=== PATIENT | female | born 1940 | race Caucasian/White ===

== ENCOUNTER 2016-12-27 14:34 | Outpatient (CLI) | payer MEDICARE, OTHER | END 2016-12-27 14:35 | disposition home or self-care (01) | DX: Z12.31 Encounter for screening mammogram for malignant neoplasm of breast (principal) ==

== ENCOUNTER 2018-01-27 10:13 | Outpatient (CLI) | payer MEDICARE, OTHER ==
--- NOTE | 2018-01-31 17:26 | Mammography Report ---
DIGITAL SCREENING MAMMOGRAM: 01/27/2018 CLINICAL INDICATION: A 77-year-old for screening. COMPARISON: 12/2016, 11/2015, 10/2014, 10/2013, 10/2012, 01/2011, 11/2009. TECHNIQUE: Routine CC and MLO projections were obtained of the breasts. FINDINGS: Scattered fibroglandular tissue is present within the breasts. There are no dominant masses, suspicious microcalcifications, or secondary signs of malignancy. In comparison to the previous studies, there are no significant changes. ASSESSMENT: NO MAMMOGRAPHIC EVIDENCE OF MALIGNANCY. NO SIGNIFICANT INTERVAL CHANGES. RECOMMENDATION: Screening mammography is recommended annually. BIRADS category 1 - negative. STANDARD QUALIFYING STATEMENTS: 1. This examination was reviewed with the aid of Computed-Aided Detection (CAD). 2. A negative or benign imaging report should not delay biopsy if clinically suspicious findings are present. Consider surgical consultation if warranted. More than 5% of cancers are not identified by imaging. 3. Dense breasts may obscure an underlying neoplasm. TD: 01/31/2018 15:09
== END 2018-01-27 10:14 | disposition home or self-care (01) ==
LOC: DI.N 10:13
PROVIDERS: ATTEND Family Medicine
DX: Z12.31 Encounter for screening mammogram for malignant neoplasm of breast (principal)
CPT/HCPCS: 77067

== ENCOUNTER 2018-03-27 08:00 | Outpatient (CLI) | payer MEDICARE, OTHER ==
[2018-03-27 12:54] LABS: BASOPHILS % (AUTO) 0.7 %; EOSINOPHILS # (AUTO) 0.1 10^3/uL (0.0-0.7); EOSINOPHILS % (AUTO) 1.9 %; HGB - HEMOGLOBIN 11.6 g/dL (12.0-16.0); LYMPHOCYTES # (AUTO) 1.7 10^3/uL (1.5-3.5); LYMPHOCYTES % (AUTO) 25.2 %; MEAN CORPUSCULAR HGB CONC 32.8 g/dL (32.0-36.0); MEAN CORPUSCULAR VOLUME 94.6 fL (81.0-99.0); MEAN PLATELET VOLUME 8.5 fL (7.9-10.8); MONOCYTES # (AUTO) 0.5 10^3/uL (0.0-1.0); MONOCYTES % (AUTO) 8.2 %; NEUTROPHILS # (AUTO) 4.2 10^3/uL (1.5-6.6); PLT - PLATELET COUNT 266 10^3/uL (130-450); RED BLOOD COUNT 3.74 10^6/uL (4.20-5.40); WHITE BLOOD COUNT 6.6 x10^3/uL (4.8-10.8)
[2018-03-27 12:59] LABS: ALBUMIN 3.2 g/dL (3.2-5.5); ALBUMIN/GLOBULIN RATIO 0.9 (1.0-2.2); ALKALINE PHOSPHATASE 45 IU/L (42-121); ALT ALANINE AMINOTRANSFERASE 19 IU/L (10-60); AST ASPARTATE AMINOTRANSFERASE 27 IU/L (10-42); BILIRUBIN,TOTAL 0.4 mg/dL (0.2-1.0); BUN - BLOOD UREA NITROGEN 29 mg/dL (6-20); CALCIUM 8.7 mg/dL (8.5-10.3); CARBON DIOXIDE - CO2 26 mmol/L (21-32); CHLORIDE 104 mmol/L (101-111); CHOL/HDL RATIO 3.2 (<4.4); CHOLESTEROL 154 mg/dL; CREATININE 1.3 mg/dL (0.4-1.0); GFR - MDRD 40 (>89); GLUCOSE 88 mg/dL (70-100); HDL CHOLESTEROL 48 mg/dL; LDL CHOLESTEROL,CALCULATED 87 mg/dL; LDL/HDL RATIO 1.8 (<4.4); SODIUM 136 mmol/L (135-145); TOTAL PROTEIN 6.7 g/dL (6.7-8.2); VLDL CHOLESTEROL 19 mg/dL
== END 2018-03-27 08:01 | disposition home or self-care (01) ==
LOC: LAB.WCP 08:00
PROVIDERS: ATTEND Family Medicine
DX: I12.9 Hypertensive chronic kidney disease with stage 1 through stage 4 chronic kidney disease, or unspecified chronic kidney disease (principal); N18.3 Chronic kidney disease, stage 3 (moderate)
CPT/HCPCS: 36415; 80053; 80061; 83721; 84443; 85025

== ENCOUNTER 2018-05-17 10:56 | Outpatient (CLI) | payer MEDICARE, OTHER ==
[2018-05-17 19:28] LABS: HGB - HEMOGLOBIN 11.4 g/dL (12.0-16.0); MEAN CORPUSCULAR HEMOGLOBIN 30.9 pg (27.0-31.0); MEAN CORPUSCULAR HGB CONC 32.9 g/dL (32.0-36.0); MEAN CORPUSCULAR VOLUME 94.2 fL (81.0-99.0); MEAN PLATELET VOLUME 8.9 fL (7.9-10.8); RED BLOOD COUNT 3.69 10^6/uL (4.20-5.40); RED CELL DISTRIBUTION WIDTH 13.4 % (12.0-15.0); WHITE BLOOD COUNT 5.5 x10^3/uL (4.8-10.8)
== END 2018-05-17 10:57 | disposition home or self-care (01) ==
LOC: LAB.WCP 10:56
PROVIDERS: ATTEND Family Medicine
DX: R06.09 Other forms of dyspnea (principal); E78.5 Hyperlipidemia, unspecified
CPT/HCPCS: 36415; 80048; 80061; 83721; 83880; 85027

== ENCOUNTER 2018-05-18 11:30 | Outpatient (CLI) | payer MEDICARE, OTHER ==
[2018-05-18 20:03] LABS: BUN - BLOOD UREA NITROGEN 22 mg/dL (6-20); CALCIUM 9.2 mg/dL (8.5-10.3); CARBON DIOXIDE - CO2 27 mmol/L (21-32); CHLORIDE 101 mmol/L (101-111); CHOL/HDL RATIO 3.8 (<4.4); CHOLESTEROL 187 mg/dL; CREATININE 1.1 mg/dL (0.4-1.0); GFR - MDRD 48 (>89); GLUCOSE 85 mg/dL (70-100); HDL CHOLESTEROL 49 mg/dL; LDL CHOLESTEROL,CALCULATED 117 mg/dL; LDL/HDL RATIO 2.4 (<4.4); SODIUM 135 mmol/L (135-145); VLDL CHOLESTEROL 21 mg/dL
== END 2018-05-18 11:31 ==
LOC: LAB.WCP 11:30
PROVIDERS: ATTEND Family Medicine
DX: E78.5 Hyperlipidemia, unspecified (principal); R06.09 Other forms of dyspnea
CPT/HCPCS: 36415; 80048; 80061; 83721

== ENCOUNTER 2018-05-24 08:24 | Outpatient (CLI) | payer MEDICARE, OTHER | END 2018-05-24 08:25 | disposition home or self-care (01) | LOC: DI 08:24 | PROVIDERS: ATTEND Family Medicine | DX: R06.00 Dyspnea, unspecified (principal); R01.1 Cardiac murmur, unspecified | CPT/HCPCS: 93306 ==

== ENCOUNTER 2019-02-28 14:28 | Outpatient (CLI) | payer MEDICARE, OTHER ==
[2019-02-28 18:54] LABS: CALCIUM 9.2 mg/dL (8.5-10.3); CREATININE 1.5 mg/dL (0.4-1.0)
== END 2019-02-28 14:29 | disposition home or self-care (01) ==
LOC: LAB.WCP 14:28
PROVIDERS: ATTEND Family Medicine
DX: I12.9 Hypertensive chronic kidney disease with stage 1 through stage 4 chronic kidney disease, or unspecified chronic kidney disease (principal); N18.3 Chronic kidney disease, stage 3 (moderate)
CPT/HCPCS: 36415; 80048

== ENCOUNTER 2019-03-09 14:22 | Outpatient (CLI) | payer MEDICARE, OTHER ==
--- NOTE | 2019-03-12 10:50 | Mammography Report ---
Reason: SCREENING MAMMOGRAM FOR BREAST CANCER Procedure Date: 03/09/2019 Accession Number: [id number] / [id number] Procedure: MGN - Screening Mammo Dig Bilat CPT Code: FULL RESULT: EXAM: Screening Mammo Dig Bilat DATE: 03/09/2019 2:46 PM CLINICAL HISTORY: Routine screening TECHNIQUE: (B) - Bilateral CC and MLO views were obtained. COMPARISON: 01/27/2018, 12/27/2016, 12/04/2015, 10/23/2014 PARENCHYMAL PATTERN: (A) - The breasts demonstrate scattered fibroglandular densities bilaterally. FINDINGS: No significant interval change. There are no suspicious masses, calcifications, or areas of distortion. IMPRESSION: Negative examination. BI-RADS category 1. RECOMMENDATION: (ANNUAL) - Recommend routine annual screening mammography. BI-RADS CATEGORY: (1) - Negative. STANDARD QUALIFYING STATEMENTS: 1. This examination was not reviewed with the aid of Computer-Aided Detection (CAD). 2. A negative or benign imaging report should not preclude biopsy if clinically suspicious findings are present. 3. Dense breasts may obscure an underlying neoplasm. 4. This examination was reviewed without the aid of 3D breast imaging (tomosynthesis).
== END 2019-03-09 14:23 | disposition home or self-care (01) ==
LOC: DI.N 14:22
PROVIDERS: ATTEND Family Medicine
DX: Z12.31 Encounter for screening mammogram for malignant neoplasm of breast (principal)
CPT/HCPCS: 77067

== ENCOUNTER 2019-08-07 07:50 | Outpatient (CLI) | payer MEDICARE, OTHER ==
[2019-08-07 12:39] LABS: BASOPHILS % (AUTO) 0.6 %; EOSINOPHILS # (AUTO) 0.3 10^3/uL (0.0-0.7); EOSINOPHILS % (AUTO) 3.8 %; HGB - HEMOGLOBIN 11.6 g/dL (12.0-16.0); MEAN CORPUSCULAR HEMOGLOBIN 30.4 pg (27.0-31.0); MEAN CORPUSCULAR HGB CONC 31.8 g/dL (32.0-36.0); MEAN CORPUSCULAR VOLUME 95.8 fL (81.0-99.0); MEAN PLATELET VOLUME 10.8 fL (7.9-10.8); MONOCYTES # (AUTO) 0.6 10^3/uL (0.0-1.0); MONOCYTES % (AUTO) 9.2 %; NEUTROPHILS # (AUTO) 3.9 10^3/uL (1.5-6.6); PLT - PLATELET COUNT 154 10^3/uL (130-450); RED BLOOD COUNT 3.81 10^6/uL (4.20-5.40); RED CELL DISTRIBUTION WIDTH 12.6 % (12.0-15.0); WHITE BLOOD COUNT 6.9 x10^3/uL (4.8-10.8)
[2019-08-07 14:00] LABS: ALBUMIN 3.5 g/dL (3.2-5.5); ALKALINE PHOSPHATASE 51 IU/L (42-121); ALT ALANINE AMINOTRANSFERASE 10 IU/L (10-60); AST ASPARTATE AMINOTRANSFERASE 18 IU/L (10-42); BILIRUBIN,TOTAL 0.6 mg/dL (0.2-1.0); BUN - BLOOD UREA NITROGEN 21 mg/dL (6-20); CALCIUM 8.5 mg/dL (8.5-10.3); CARBON DIOXIDE - CO2 26 mmol/L (21-32); CHLORIDE 103 mmol/L (101-111); CHOLESTEROL 168 mg/dL; CREATININE 1.3 mg/dL (0.4-1.0); GFR - MDRD 40 (>89); GLUCOSE 85 mg/dL (70-100); HDL CHOLESTEROL 42 mg/dL; LDL CHOLESTEROL,CALCULATED 98 mg/dL; LDL/HDL RATIO 2.3 (<4.4); SODIUM 140 mmol/L (135-145); TOTAL PROTEIN 6.9 g/dL (6.7-8.2); VLDL CHOLESTEROL 28 mg/dL
== END 2019-08-07 07:51 | disposition home or self-care (01) ==
LOC: LAB.WCP 07:50
PROVIDERS: ATTEND Family Medicine
DX: I35.0 Nonrheumatic aortic (valve) stenosis (principal); E78.5 Hyperlipidemia, unspecified; I12.9 Hypertensive chronic kidney disease with stage 1 through stage 4 chronic kidney disease, or unspecified chronic kidney disease; N18.3 Chronic kidney disease, stage 3 (moderate)
CPT/HCPCS: 36415; 80053; 80061; 83721; 84443; 85025

== ENCOUNTER 2019-11-23 07:26 | Outpatient (CLI) | payer MEDICARE, OTHER ==
--- NOTE | 2019-11-23 10:39 | Ultrasound Report ---
Reason: HX OF BLOOD CLOT Procedure Date: 11/23/2019 Accession Number: [id number] / [id number] Procedure: US - Pelvic w/Transvaginal CPT Code: Addended Final Report FULL RESULT: EXAM: PELVIC ULTRASOUND EXAM DATE: 11/23/2019 07:29 AM. CLINICAL HISTORY: Lower pelvic pain. History of DVT. COMPARISON: None. TECHNIQUE: Realtime transabdominal pelvic scan performed to identify the uterus and adnexa and as an overview of other pelvic structures, followed by transvaginal scan to provide greater detail of the uterus and adnexa, with static image documentation. FINDINGS: Uterus: 5.0 x 2.3 x 4.2 cm, volume 26 cc. Retroverted position. Uterine positioning appears distorted with uterine echotexture demonstrating increased heterogeneity. Masses: Near the endocervix reaching toward the endometrium is a highly vascular partially cystic partially solid 0.8 x 0.3 x 0.7 cm mass with feeding vessel by color Doppler. Endometrium: 13 mm. Distended with fluid and containing debris and calcifications. Cervix: Abnormal associated mass as described above. Additionally, nabothian cysts are noted. Right Ovary: 1.2 x 2.2 x 1.0 cm, volume 1.3 cc. Normal echotexture and blood flow. Left Ovary: 0.7 x 1.8 x 1.2 cm, volume 0.8 cc. Normal echotexture and blood flow. Free Fluid: Minimal. Other: None. IMPRESSION: Abnormal vascular mass reaching from endocervix towards the endometrium as described. This is suspicious for malignancy. JONI The call report notification system was initiated by Dr. Lm Graham at 10:35 AM on 11/23/2019. ADDENDUM: 11/23/19 11:24 The above call report findings were discussed with Mendoza Esquivel by Dr. Lm Graham at 11:24 AM on 11/23/2019.
== END 2019-11-23 07:27 | disposition home or self-care (01) ==
LOC: DI 07:26
PROVIDERS: ATTEND Internal Medicine
DX: Z12.79 Encounter for screening for malignant neoplasm of other genitourinary organs (principal); N88.9 Noninflammatory disorder of cervix uteri, unspecified
CPT/HCPCS: 76830; 76856

== ENCOUNTER 2020-01-05 17:42 | Outpatient (CLI) | payer MEDICARE, OTHER | END 2020-01-05 23:59 | disposition EMS.NT | LOC: EMS 17:42 | PROVIDERS: ATTEND Surgery | DX: R03.0 Elevated blood-pressure reading, without diagnosis of hypertension (principal) ==

== ENCOUNTER 2020-01-17 07:00 | Outpatient (CLI) | payer MEDICARE, OTHER | END 2020-01-17 23:59 | disposition home or self-care (01) | LOC: LAB.R 07:00 | PROVIDERS: ATTEND Physician Assistant | DX: N39.0 Urinary tract infection, site not specified (principal) | CPT/HCPCS: 87086; 87181 ==

== ENCOUNTER 2020-01-18 18:13 | Outpatient (CLI) | payer MEDICARE, OTHER | END 2020-01-18 18:14 | disposition short-term general hospital (02) | LOC: EMS 18:13 | PROVIDERS: ATTEND Surgery | DX: R07.89 Other chest pain (principal); R11.0 Nausea | CPT/HCPCS: A0425; A0427; A0888 ==

== ENCOUNTER 2020-03-21 11:02 | Outpatient (CLI) | payer MEDICARE, OTHER ==
[2020-03-21 18:06] LABS: BASOPHILS # (AUTO) 0.1 10^3/uL (0.0-0.1); EOSINOPHILS # (AUTO) 0.1 10^3/uL (0.0-0.7); EOSINOPHILS % (AUTO) 1.1 %; HGB - HEMOGLOBIN 11.3 g/dL (12.0-16.0); LYMPHOCYTES # (AUTO) 1.6 10^3/uL (1.5-3.5); LYMPHOCYTES % (AUTO) 25.3 %; MEAN CORPUSCULAR HGB CONC 32.2 g/dL (32.0-36.0); MEAN CORPUSCULAR VOLUME 96.2 fL (81.0-99.0); MEAN PLATELET VOLUME 10.9 fL (7.9-10.8); MONOCYTES # (AUTO) 0.5 10^3/uL (0.0-1.0); MONOCYTES % (AUTO) 8.8 %; NEUTROPHILS # (AUTO) 3.9 10^3/uL (1.5-6.6); NEUTROPHILS % (AUTO) 63.5 %; PLT - PLATELET COUNT 159 10^3/uL (130-450); RED BLOOD COUNT 3.65 10^6/uL (4.20-5.40); RED CELL DISTRIBUTION WIDTH 13.1 % (12.0-15.0); WHITE BLOOD COUNT 6.2 x10^3/uL (4.8-10.8)
[2020-03-21 19:41] LABS: ALBUMIN 3.6 g/dL (3.2-5.5); ALBUMIN/GLOBULIN RATIO 1.1 (1.0-2.2); ALKALINE PHOSPHATASE 42 IU/L (42-121); ALT ALANINE AMINOTRANSFERASE 13 IU/L (10-60); AST ASPARTATE AMINOTRANSFERASE 19 IU/L (10-42); BILIRUBIN,TOTAL 0.6 mg/dL (0.2-1.0); BUN - BLOOD UREA NITROGEN 23 mg/dL (6-20); CALCIUM 9.3 mg/dL (8.5-10.3); CARBON DIOXIDE - CO2 27 mmol/L (21-32); CHLORIDE 105 mmol/L (101-111); CHOL/HDL RATIO 3.9 (<4.4); CHOLESTEROL 165 mg/dL; CREATININE 1.2 mg/dL (0.4-1.0); GLUCOSE 103 mg/dL (70-100); HDL CHOLESTEROL 42 mg/dL; LDL CHOLESTEROL,CALCULATED 104 mg/dL; LDL/HDL RATIO 2.5 (<4.4); SODIUM 138 mmol/L (135-145); TOTAL PROTEIN 6.8 g/dL (6.7-8.2); VLDL CHOLESTEROL 19 mg/dL
== END 2020-03-21 11:03 | disposition home or self-care (01) ==
LOC: LAB.WCP 11:02
PROVIDERS: ATTEND Family Medicine
DX: I10 Essential (primary) hypertension (principal); E78.5 Hyperlipidemia, unspecified; R25.1 Tremor, unspecified
CPT/HCPCS: 36415; 80053; 80061; 83721; 84443; 85025

== ENCOUNTER 2020-03-31 12:43 | Outpatient (CLI) | payer MEDICARE, OTHER | END 2020-03-31 12:44 | disposition short-term general hospital (02) | LOC: EMS 12:43 | PROVIDERS: ATTEND Surgery | DX: R07.9 Chest pain, unspecified (principal) | CPT/HCPCS: A0425; A0427; A0888 ==

== ENCOUNTER 2020-05-16 07:00 | Outpatient (CLI) | payer MEDICARE, OTHER | END 2020-05-16 23:59 | disposition home or self-care (01) | LOC: LAB.R 07:00 | PROVIDERS: ATTEND Nurse Practitioner Family | DX: R35.0 Frequency of micturition (principal) | CPT/HCPCS: 87086; 87181 ==

== ENCOUNTER 2020-07-04 04:02 | Outpatient (CLI) | payer MEDICARE, OTHER | END 2020-07-04 04:03 | disposition short-term general hospital (02) | LOC: EMS 04:02 | PROVIDERS: ATTEND Surgery | DX: R25.1 Tremor, unspecified (principal) | CPT/HCPCS: A0425; A0429; A0888 ==

== ENCOUNTER 2020-07-08 05:04 | Emergency (ER) | payer MEDICARE, OTHER ==
--- NOTE | 2020-07-08 05:14 | ED Physician Documentation ---
History of Present Illness - Stated complaint Stated Complaint: SHAKING - History obtained from History obtained from: Patient - Additonal information Additional information: Patient comes emergency department complaining of whole body shaking that has been going on all night. The patient states she has been having episodes of shaking that have been gradually getting worse, ever since November. She states that she wakes up shaking in the morning and that it gets somewhat better over the course of the day, especially she takes an Ativan. However, by the end of the day if she does not take another Ativan she notices shaking. Patient denies any other new symptoms with this. No nausea or vomiting, no chest pain, or shortness of breath. Patient states that she was referred by her primary care physician Dr. Alvarez to Dr. Mendoza of psychiatry. The patient has been followed by Dr. Mendoza, and he added venlafaxine to her regimen last week approximately 5 days ago. Patient states that that day she shook more than usual, and she was certain that it was a reaction to venlafaxine, so refused to take any more of the venlafaxine. 6 days have Gone by, and patient states that her shaking has continued. She is tried taking her as needed Ativan at home which helps for short time, but then the shakes come right back. No other complaints at this time. Review of Systems Ten Systems: 10 systems reviewed and negative Constitutional: reports: Reviewed and negative Eyes: reports: Reviewed and negative Ears: reports: Reviewed and negative Nose: reports: Reviewed and negative Throat: reports: Reviewed and negative Cardiac: reports: Reviewed and negative Respiratory: reports: Reviewed and negative GI: reports: Reviewed and negative : reports: Reviewed and negative Skin: reports: Reviewed and negative Musculoskeletal: reports: Reviewed and negative Neurologic: reports: Other (Tremor) Psychiatric: reports: Reviewed and negative Endocrine: reports: Reviewed and negative Immunocompromised: reports: Reviewed and negative PD PAST MEDICAL HISTORY - Past Medical History Cardiovascular: Hypertension, High cholesterol Respiratory: None Endocrine/Autoimmune: None GI: None : None HEENT: None, Chronic vision loss Psych: None, Claustrophobia Musculoskeletal: None Derm: None - Past Surgical History General: Colonoscopy - Present Medications Home Medications: Ambulatory Orders Medication Instructions Recorded Confirmed Hyalur AC/Chond Sul/Colg II/Aa 2 tab PO DAILY 07/18/14 07/08/20 [Hyaluronic Acid 40 mg Capsule] [place]-3 Fatty Acids/Fish Oil [Fish 1 tab PO DAILY 07/18/14 07/08/20 Oil 1,000 mg Capsule] Simvastatin 10 mg PO DAILY 07/18/14 07/08/20 Furosemide 10 mg PO DAILY 10/22/19 07/08/20 Losartan Potassium 100 mg PO DAILY 10/22/19 07/08/20 Metoprolol Succinate [Toprol Xl] 50 mg PO DAILY 10/22/19 07/08/20 Rivaroxaban [Xarelto] 20 mg PO DAILY 10/22/19 07/08/20 Ubidecarenone [Co Q-10] 10 mg PO DAILY 10/22/19 07/08/20 LORazepam [Ativan] 0.5 mg PO BID 02/13/20 07/08/20 amLODIPine [Norvasc] 5 mg PO DAILY 02/13/20 07/08/20 Calcium Carbonate [Calcium] 1 tab PO DAILY 07/08/20 07/08/20 [place]-3/Dha/Epa/Fish Oil [Fish Oil 1 cap PO TID 07/08/20 07/08/20 1,000 mg Softgel] - Allergies Allergies/Adverse Reactions: Allergies Allergy/AdvReac Type Severity Reaction Status Date / Time No Known Drug Allergies Allergy Verified 07/08/20 05:21 - Social History Smoking Status: Former smoker PD ED PE NORMAL - Vitals Vital signs reviewed: Yes - General General: Alert and oriented X 3, No acute distress - HEENT HEENT: Atraumatic, PERRL, EOMI, Moist mucous membranes - Neck Neck: Supple, no meningeal sign - Cardiac Cardiac: RRR, No murmur - Respiratory Respiratory: No respiratory distress, Clear bilaterally - Abdomen Abdomen: Soft, Non tender, Non distended - Derm Derm: Warm and dry - Extremities Extremities: No deformity - Neuro Neuro: Alert and oriented X 3, soaker 2-12 intact, No motor deficit, No sensory deficit, Normal speech Verbal: Incomprehensible (Mildly tremulous throughout entire body. No ataxia.) - Psych Psych: No: Normal mood (Patient appears slightly anxious.) Results - Vitals Vitals: Vital Signs - 24 hr 07/08/20 07/08/20 05:05 05:45 Temperature 36.6 C Heart Rate 88 70 Respiratory 20 16 Rate Blood Pressure 151/46 H O2 Saturation 97 97 Oxygen O2 Source Room air PD MEDICAL DECISION MAKING - ED course Complexity details: reviewed old records, reviewed results, re-evaluated p atient, considered differential, d/w patient ED course: Patient was treated symptomatically with Ativan p.o. in the emergency department I discussed with the patient, who stated that she wanted us to "figure out what is going on" that she has had months worth of symptoms and has already seen by her primary care, as well as psychiatry. I have advised the patient that she should talk to Dr. Shelton about the possibility of following up with neurology for further evaluation of her tremors. I have advised the patient that it is very important that she brings this up and advocates for herself to get timely referrals. We have discussed the usual indications for return Departure - Departure Disposition: 01 Home, Self Care Clinical Impression: Anxiety, Tremor Condition: Stable Instructions: Essential Tremor ET, Anxiety Body Response Comments: As we have discussed, it is very important that you continue to call Dr. Mendoza's office and that you specifically ask if you can see Dr. Mendoza in the next week, given your concerns over your new medicine and your discomfort with continuing to take it. It is also very important that you talk to Dr. Alvarez about whether you should have a neurology referral for your ongoing shakes. Given the long-term nature of the symptoms, and this is not a problem that we can solve in the emergency department. You need to be seen by a couple of different specialist to sort out what is going on and to determine the best medication option for you. There is no evidence of an emergent condition at this time. You may take up to 2 mg of Ativan at a time, every 4 hours, if needed for anxiety. If you would like to just take 2 tablets of Ativan for now if the 0.5 mg dose does not work, this would be fine. Please wait 4 to 6 hours between doses.
[2020-07-08] MEDS ORDERED: LORazepam 1 MG TABLET PO STA (05:43)
[2020-07-08 06:59] VITALS: BP 126/59
== END 2020-07-08 06:59 | disposition home or self-care (01) ==
LOC: ED 05:04
DX: F41.9 Anxiety disorder, unspecified (principal); R25.1 Tremor, unspecified; I10 Essential (primary) hypertension; Z87.891 Personal history of nicotine dependence; Z79.01 Long term (current) use of anticoagulants
CPT/HCPCS: 99284; J8499

== ENCOUNTER 2020-07-17 20:10 | Outpatient (CLI) | payer MEDICARE, OTHER ==
--- NOTE | 2020-07-18 07:37 | Ultrasound Report ---
PROCEDURE: Carotid Doppler Complete INDICATIONS: TRANSIENT VISUAL LOSS TECHNIQUE: Color and pulse Doppler interrogation was performed of both carotid systems, with image documentation and velocity measurements. COMPARISON: None. FINDINGS: Right side: Brachial blood pressure: Not measured Common carotid artery peak systolic velocity: 96 cm/sec. Internal carotid artery peak systolic velocity: 91 cm/sec. Internal carotid artery end diastolic velocity: 11 cm/sec. External carotid artery peak systolic velocity: 76 cm/sec. ICA/CCA peak systolic ratio: 0.9 . Collado scale imaging description: Calcified plaque Percent internal carotid artery stenosis: Less than 50% . Vertebral artery: Flow direction is antegrade. Left side: Brachial blood pressure: Not measured Common carotid artery peak systolic velocity: 76 cm/sec. Internal carotid artery peak systolic velocity: 85 cm/sec. Internal carotid artery end diastolic velocity: 14 cm/sec. External carotid artery peak systolic velocity: 86 cm/sec. ICA/CCA peak systolic ratio: 1.1 . Collado scale imaging description: Calcified plaque Percent internal carotid artery stenosis: Less than 50% . Vertebral artery: Flow direction is antegrade. IMPRESSION: Less than 50% stenosis of the origins of the right and left internal carotid arteries. The estimate of stenosis included in the report of the imaging study was calculated using the NASCET method Reviewed by: Colette Knight MD, PhD on 07/18/2020 7:36 AM PST Approved by: Colette Knight MD, PhD on 07/18/2020 7:36 AM PST Station ID: [id number]
== END 2020-07-17 20:11 | disposition home or self-care (01) ==
LOC: DI 20:10
PROVIDERS: ATTEND Ophthalmology
DX: I65.23 Occlusion and stenosis of bilateral carotid arteries (principal)
CPT/HCPCS: 93880

== ENCOUNTER 2020-07-18 09:37 | Outpatient (CLI) | payer MEDICARE, OTHER | END 2020-07-18 09:38 | disposition home or self-care (01) | LOC: DI 09:37 | PROVIDERS: ATTEND Ophthalmology | DX: H53.123 Transient visual loss, bilateral (principal); I35.2 Nonrheumatic aortic (valve) stenosis with insufficiency; I51.7 Cardiomegaly | CPT/HCPCS: 93306 ==

== ENCOUNTER 2020-07-22 06:41 | Emergency (ER) | payer MEDICARE, OTHER ==
[2020-07-22] MEDS ORDERED: LORazepam 1 MG TABLET PO STA (07:50)
--- NOTE | 2020-07-22 07:56 | ED Physician Documentation ---
History of Present Illness - Stated complaint Stated Complaint: SHAKEING - Chief complaint Chief Complaint: General - History obtained from History obtained from: Patient, Family - Additonal information Additional information: Patient comes emergency department complaining of a flareup of her shaking that began in the middle of the night last night. Patient states that she woke up around 3:00 this morning and noted that she was shaking quite badly, so she took one of her Ativan tablets. She believes these are 1 mg, though our last record indicates that she was on 0.5 mg. The patient states that she tried to go back to sleep but at 6:00, was still shaking. She is not sure whether she took another Ativan tablet or notshe states that she had intended to but cannot remember if she actually did it. She states she is not feeling any better now. The patient has been dealing with tremors for quite some time, at least since November. She has seen her primary care physician Dr. Sehela Alvarez multiple times for this, as well as followed up with Dr. Mendoza of psychiatry. She was on venlafaxine when I last saw her in late June and was concerned that this may have made the shakes worse. She states she has not been able to see Dr. Mendoza since and has not been on the venlafaxine. The patient is frustrated with what she perceives to be nobody being able to help her. This is despite having had multiple appointments with both Dr. Mendoza and Dr. Alvarez. The patient states that she has been told she is probably suffering from grief, as well as depression and anxiety. On her last visit to the ED, I instructed her to talk to Dr. Alvarez about getting a neurology referral, which patient states that she did. Her perception is that the staff told her that they were putting the ref erral in, but that since she has not heard back about neurology follow-up, that they are "doing nothing". The patient states that she cannot really identify a trigger for her shaking episodes, but thinks that they get worse if she does not get Ativan soon enough. She does note that last time she was here, what ever we did for her made her feel great for the rest of the day. Patient denies any o ther signs of illness. She does note that she had complete visual loss in her right eye last week and that this resulted in an echocardiogram and carotid Doppler being done. She denies focal deficits today. No other complaints at this time. Review of Systems Ten Systems: 10 systems reviewed and negative Constitutional: reports: Reviewed and negative Eyes: reports: Reviewed and negative Ears: reports: Reviewed and negative Nose: reports: Reviewed and negative Throat: reports: Reviewed and negative Cardiac: reports: Reviewed and negative Respiratory: reports: Reviewed and negative GI: reports: Reviewed and negative : reports: Reviewed and negative Skin: reports: Reviewed and negative Musculoskeletal: reports: Reviewed and negative Neurologic: reports: Other (Tremors). denies: Generalized weakness, Focal weakness Psychiatric: reports: Reviewed and negative Endocrine: reports: Reviewed and negative Immunocompromised: reports: Reviewed and negative PD PAST MEDICAL HISTORY - Past Medical History Past Medical History: Yes Cardiovascular: Hypertension, High cholesterol Respiratory: None Endocrine/Autoimmune: None GI: None : None HEENT: None, Chronic vision loss Psych: None, Claustrophobia Musculoskeletal: None Derm: None - Past Surgical History Past Surgical History: Yes General: Colonoscopy - Present Medications Home Medications: Ambulatory Orders Medication Instructions Recorded Confirmed Hyalur AC/Chond Sul/Colg II/Aa 2 tab PO DAILY 07/18/14 07/22/20 [Hyaluronic Acid 40 mg Capsule] Simvastatin 10 mg PO DAILY 07/18/14 07/22/20 Furosemide 10 mg PO DAILY 10/22/19 07/22/20 Losartan Potassium 100 mg PO DAILY 10/22/19 07/22/20 Metoprolol Succinate [Toprol Xl] 50 mg PO DAILY 10/22/19 07/22/20 Rivaroxaban [Xarelto] 20 mg PO DAILY 10/22/19 07/22/20 Ubidecarenone [Co Q-10] 10 mg PO DAILY 10/22/19 07/22/20 LORazepam [Ativan] 0.5 mg PO BID 02/13/20 07/22/20 amLODIPine [Norvasc] 5 mg PO DAILY 02/13/20 07/22/20 Calcium Carbonate [Calcium] 1 tab PO DAILY 07/08/20 07/22/20 [place]-3/Dha/Epa/Fish Oil [Fish Oil 1 cap PO TID 07/08/20 07/22/20 1,000 mg Softgel] Lorazepam [Ativan] 2 mg PO Q4H PRN #20 tablet 07/22/20 - Allergies Allergies/Adverse Reactions: Allergies Allergy/AdvReac Type Severity Reaction Status Date / Time amlodipine Allergy Unknown Verified 07/22/20 06:53 buspirone Allergy Unknown Verified 07/22/20 06:53 escitalopram Allergy Unknown Verified 07/22/20 06:53 pravastatin [From Pravachol] Allergy Unknown Verified 07/22/20 06:53 sertraline Allergy Unknown Verified 07/22/20 06:53 - Social History Does the pt smoke?: No Smoking Status: Never smoker Does the pt drink ETOH?: No Does the pt have substance abuse?: No - Immunizations Immunizations are current?: Yes - POLST Patient has POLST: No PD ED PE NORMAL - Vitals Vital signs reviewed: Yes - General General: Alert and oriented X 3, No acute distress, Well developed/nourished - HEENT HEENT: Atraumatic, PERRL, EOMI, Moist mucous membranes - Neck Neck: Supple, no meningeal sign - Cardiac Cardiac: RRR, No murmur - Respiratory Respiratory: No respiratory distress, Clear bilaterally - Abdomen Abdomen: Soft, Non tender, Non distended - Derm Derm: Normal color, Warm and dry, No rash - Extremities Extremities: No deformity, No edema, No calf tenderness / cord - Neuro Neuro: Alert and oriented X 3, 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, No motor deficit, No sensory deficit, Normal speech, Other (Gross, full body tremors, worse in head, neck, and upper extremities) - Psych Psych: Normal mood, Normal affect Results - Vitals Vitals: Vital Signs - 24 hr 07/22/20 07/22/20 06:45 08:10 Temperature 36 C L Heart Rate 86 76 Respiratory 16 18 Rate Blood Pressure 134/59 H 134/58 H O2 Saturation 98 98 Oxygen O2 Source Room air PD MEDICAL DECISION MAKING - ED course Complexity details: reviewed old records, reviewed results, re-evaluated patient, considered differential, d/w patient, d/w family ED course: I had a very long discussion with this patient, for which patient's son was pre sent. The patient has struggled greatly with the perception that nobody is doing anything to help her, and I have gently reminded the patient that actually, she has had many appointments with both her primary care physician and her psychiatrist, and that numerous interventions have been attempted, although unfortunately, they have not seemed to help the patient's symptoms much. She is also received prompt care for her visual loss, which is since resolved. I have discussed with her that it is important for her to follow-up on the neurology referral, as I think this is the next best step for her in sorting out what is going on with her tremors. We have discussed that the referral process often takes several weeks and that an appointment may not be able to be scheduled for sooner than a couple of months from now. However, most likely the process is in motion, however slow it may seem that the wheels turn. The patient does not have any new or unusual features with this flareup of her tremors, and I do not find any evidence of a stroke today. I have reviewed old records and it appears we gave the patient a p.o. dose of Ativan, but more than what she was taking at home, the last time she was here. I have ordered Ativan 2 mg p.o. for the patient here. She is feeling somewhat better after this, and is stable for d/c. Departure - Departure Disposition: 01 Home, Self Care Clinical Impression: Tremor Condition: Stable Instructions: Essential Tremor ET Prescriptions: Lorazepam [Ativan] 2 mg PO Q4H PRN #20 tablet PRN Reason: Anxiety Comments: As we have discussed before, it is very important that you follow-up with your doctor Noting the need for neurology referral, as this is the next best step in sorting out your tremors. Anxiety may certainly be a contributor, and you karly uld continue to work with Drs. Alvarez and Reji on effective treatment of the symptoms until you are seen by neurology. You may take up to 2 mg of Ativan/lorazepam every 4 hours as needed. I have given you a prescription for a 2 mg tablet, which you can take if the smaller dose does not seem to be working for you. This is what we gave you in the ER last time you were here and today. Please continue your plans to follow-up with Dr. Alvarez tomorrow and be sure to ask her about the neurology referral. Discharge Date/Time: 07/22/20 09:32
[2020-07-22 08:11] VITALS: BP 134/58
== END 2020-07-22 09:32 | disposition home or self-care (01) ==
LOC: ED 06:41
DX: R25.1 Tremor, unspecified (principal); I10 Essential (primary) hypertension
CPT/HCPCS: 99282; 99284; J8499

== ENCOUNTER 2020-07-24 11:33 | Emergency (ER) | payer MEDICARE, OTHER ==
[2020-07-24 12:07] LABS: BASOPHILS # (AUTO) 0.1 10^3/uL (0.0-0.1); BASOPHILS % (AUTO) 0.6 %; EOSINOPHILS # (AUTO) 0.2 10^3/uL (0.0-0.7); EOSINOPHILS % (AUTO) 1.9 %; LYMPHOCYTES # (AUTO) 1.4 10^3/uL (1.5-3.5); LYMPHOCYTES % (AUTO) 17.5 %; MEAN CORPUSCULAR HEMOGLOBIN 30.4 pg (27.0-31.0); MEAN PLATELET VOLUME 9.1 fL (7.9-10.8); MONOCYTES # (AUTO) 0.6 10^3/uL (0.0-1.0); NEUTROPHILS # (AUTO) 5.6 10^3/uL (1.5-6.6); NEUTROPHILS % (AUTO) 71.6 %; PLT - PLATELET COUNT 254 10^3/uL (130-450); RED BLOOD COUNT 3.62 10^6/uL (4.20-5.40); RED CELL DISTRIBUTION WIDTH 12.4 % (12.0-15.0); WHITE BLOOD COUNT 7.8 x10^3/uL (4.8-10.8)
--- NOTE | 2020-07-24 12:18 | ED Physician Documentation ---
History of Present Illness - Stated complaint Stated Complaint: ANXIETY/SENT BY - Chief complaint Chief Complaint: MHE - History obtained from History obtained from: Patient, Family - Additonal information Additional information: 80-year-old female was referred to the emergency department for evaluation of worsening depression, anxiety and hopelessness. Her primary care provider is hoping that we may make geriatric psychiatric services available to her. She has been dealing with depression for quite some time at least 3 years since the of her . Since the pandemic began she has noticed a marked increase in her anxiety. She does have a psychiatrist's (Dr. Mendoza) in [facility]. Over the last few months he has trialed her on a number of different anxiety and depression medications but she does not last on them very long as she feels that they cause worsening anxiety, nausea as well as agitation. The most recent medication that she was trialed on was with venlaflaxine. In addition to the psychiatric medications she has also been trialed on various doses of Ativan without relief. This patient reports to me that she does not have plans to harm herself however she would be satisfied to go to sleep and never wake up again. She is here with her daughter and they are both very concerned that any psychiatric medications that she is started on be monitored for side effects. However neither is sure whether they want her to be placed in an inpatient psychiatric setting. 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 She is on Xarelto. She recently has loss of vision in her right eye, thought to be secondary to a embolus. SHe did receive an echocardiogram and a carotid doppler as a result. Patient does live by herself.Patient is also concerned that she feels that over the last few months that she is cognitively declining. She sometimes feels that she is confused and has had more difficult time reading or being engaged in activities. She does wonder if she may be developing some dementia. meds: lasix, losartan, amlodipine, ativan, xarelto Review of Systems Constitutional: denies: Fever, Chills Eyes: reports: Loss of vision Ears: reports: Reviewed and negative Nose: reports: Reviewed and negative Throat: reports: Reviewed and negative Cardiac: reports: Reviewed and negative Respiratory: reports: Reviewed and negative GI: reports: Nausea : denies: Dysuria, Frequency, Hesitancy, Unable to Void Skin: reports: Reviewed and negative Musculoskeletal: reports: Reviewed and negative Neurologic: denies: Focal weakness, Difficulty speaking, Near syncope, Syncope, Seizure, Headache, LOC Psychiatric: reports: Depressed, Anxiety. denies: Suicidal, Hallucinations, Delusions PD PAST MEDICAL HISTORY - Past Medical History Cardiovascular: Hypertension, High cholesterol Respiratory: None Endocrine/Autoimmune: None GI: None : None HEENT: None, Chronic vision loss Psych: None, Claustrophobia Musculoskeletal: None Derm: None - Past Surgical History Past Surgical History: Yes General: Colonoscopy - Present Medications Home Medications: Ambulatory Orders Medication Instructions Recorded Confirmed Hyalur AC/Chond Sul/Colg II/Aa 2 tab PO DAILY 07/18/14 07/22/20 [Hyaluronic Acid 40 mg Capsule] Simvastatin 10 mg PO DAILY 07/18/14 07/22/20 Furosemide 10 mg PO DAILY 10/22/19 07/22/20 Losartan Potassium 100 mg PO DAILY 10/22/19 07/22/20 Metoprolol Succinate [Toprol Xl] 50 mg PO DAILY 10/22/19 07/22/20 Rivaroxaban [Xarelto] 20 mg PO DAILY 10/22/19 07/22/20 Ubidecarenone [Co Q-10] 10 mg PO DAILY 10/22/19 07/22/20 LORazepam [Ativan] 0.5 mg PO BID 02/13/20 07/22/20 amLODIPine [Norvasc] 5 mg PO DAILY 02/13/20 07/22/20 Calcium Carbonate [Calcium] 1 tab PO DAILY 07/08/20 07/22/20 [place]-3/Dha/Epa/Fish Oil [Fish Oil 1 cap PO TID 07/08/20 07/22/20 1,000 mg Softgel] Lorazepam [Ativan] 2 mg PO Q4H PRN #20 tablet 07/22/20 - Allergies Allergies/Adverse Reactions: Allergies Allergy/AdvReac Type Severity Reaction Status Date / Time buspirone Allergy Unknown Verified 07/24/20 11:44 escitalopram Allergy Unknown Verified 07/24/20 11:44 pravastatin [From Pravachol] Allergy Unknown Verified 07/24/20 11:44 sertraline Allergy Unknown Verified 07/24/20 11:44 - Social History Does the pt smoke?: No Smoking Status: Never smoker Does the pt drink ETOH?: No Does the pt have substance abuse?: No - Immunizations Immunizations are current?: Yes - POLST Patient has POLST: No PD ED PE EXPANDED - General General: Alert, No acute distress, Well developed/nourished - HEENT HEENT: PERRL, EOMI - Eyes Eyes: PERRL, EOMI - Neck Neck: Supple w/out meningeal sx. No: Adenopathy - Cardiac Cardiac: Regular Rate, Regular Rhythm, Murmur Present, Radial strong equal, Pedal strong equal, Cap refill < 2 sec - Respiratory Respiratory: Clear to ausultation jairon. No: Distress, Labored, Stridor - Abdomen Abdomen: Normal Bowel sounds. No: Tender to palpation - Derm Derm: Normal color, Warm and dry. No: Rash - Neuro Neuro: Alert and Oriented X 3, CNII-XII intact, Normal gait, Normal finger nose, Normal speech - GCS Eye Opening: Spontaneous Motor: Obeys Commands Verbal: Oriented Total: 15 - Psych Psych: Withdrawn, Poor eye contact, Other (flat affect, poor eye contact). No: Suicidal Results - Vitals Vitals: Vital Signs - 24 hr 07/24/20 11:38 Temperature 36.1 C L Heart Rate 76 Respiratory 16 Rate Blood Pressure 126/48 L O2 Saturation 97 Oxygen O2 Source Room air - EKG (time done) 1210 Rate: Rate (enter#) (74) Rhythm: NSR [place]: Normal Intervals: Normal AR QRS: Normal Ischemia: Q waves (inferior leads) Compare to prior EKG: Old EKG unavailable Computer interpretation: Agree with computer - Labs Labs: Laboratory Tests 07/24/20 07/24/20 07/24/20 12:00 12:00 12:00 WBC 7.8 RBC 3.62 L Hgb 11.0 L Hct 34.4 L MCV 95.0 MCH 30.4 MCHC 32.0 RDW 12.4 Plt Count 254 MPV 9.1 Neut # (Auto) 5.6 Lymph # (Auto) 1.4 L [place] # (Auto) 0.6 Eos # (Auto) 0.2 Baso # (Auto) 0.1 Absolute Nucleated RBC 0.00 Nucleated RBC % 0.0 Sodium 137 Potassium 4.2 Chloride 99 L Carbon Dioxide 25 Anion Gap 13.0 BUN 22 H Creatinine 1.2 H Estimated GFR (MDRD) 43 L Glucose 107 H Calcium 9.6 Total Bilirubin 0.5 AST 21 ALT 16 Alkaline Phosphatase 53 Total Protein 7.3 Albumin 3.6 Globulin 3.7 Albumin/Globulin Ratio 1.0 Lipase 33 TSH 1.76 Urine Color Urine Clarity Urine pH Ur Specific [place] Urine Protein Urine Glucose (UA) Urine Ketones Urine Occult Blood Urine Nitrite Urine Bilirubin Urine Urobilinogen Ur Leukocyte Esterase Ur Microscopic Review Urine Culture Comments Nasal Adenovirus (PCR) Nasal B. parapertussis DNA (PCR) Nasal Coronavir 229E PCR Nasal Coronavir HKU1 PCR Nasal Coronavir NL63 PCR Nasal Coronavir OC43 PCR Nasal Enterovir/Rhinovir PCR Nasal Influenza B PCR Nasal Influenza A PCR Nasal Parainfluen 1 PCR Nasal Parainfluen 2 PCR Nasal Parainfluen 3 PCR Nasal Parainfluen 4 PCR Nasal RSV (PCR) Nasal B.pertussis DNA PCR Nasal C.pneumoniae (PCR) Ammon Human Metapneumo PCR Nasal M.pneumoniae (PCR) Nasal SARS-CoV-2 (PCR) Salicylates < 6.0 Urine Opiates Screen Ur Oxycodone Screen Urine Methadone Screen Ur Propoxyphene Screen Acetaminophen < 10 L Ur Barbiturates Screen Ur Tricyclics Screen Ur Phencyclidine Scrn Ur Amphetamine Screen U Methamphetamines Scrn U Benzodiazepines Scrn Urine Cocaine Screen U Cannabinoids Screen Ethyl Alcohol < 5.0 07/24/20 07/24/20 12:23 12:25 WBC RBC Hgb Hct MCV MCH MCHC RDW Plt Count MPV Neut # (Auto) Lymph # (Auto) [place] # (Auto) Eos # (Auto) Baso # (Auto) Absolute Nucleated RBC Nucleated RBC % Sodium Potassium Chloride Carbon Dioxide Anion Gap BUN Creatinine Estimated GFR (MDRD) Glucose Calcium Total Bilirubin AST ALT Alkaline Phosphatase Total Protein Albumin Globulin Albumin/Globulin Ratio Lipase TSH Urine Color YELLOW Urine Clarity CLEAR Urine pH 6.5 Ur Specific [place] 1.015 Urine Protein NEGATIVE Urine Glucose (UA) NEGATIVE Urine Ketones NEGATIVE Urine Occult Blood NEGATIVE Urine Nitrite NEGATIVE Urine Bilirubin NEGATIVE Urine Urobilinogen 0.2 (NORMAL) Ur Leukocyte Esterase NEGATIVE Ur Microscopic Review NOT INDICATED Urine Culture Comments NOT INDICATED Nasal Adenovirus (PCR) NOT DETECTED Nasal B. parapertussis DNA (PCR) NOT DETECTED Nasal Coronavir 229E PCR NOT DETECTED Nasal Coronavir HKU1 PCR NOT DETECTED Nasal Coronavir NL63 PCR NOT DETECTED Nasal Coronavir OC43 PCR NOT DETECTED Nasal Enterovir/Rhinovir PCR NOT DETECTED Nasal Influenza B PCR NOT DETECTED Nasal Influenza A PCR NOT DETECTED Nasal Parainfluen 1 PCR NOT DETECTED Nasal Parainfluen 2 PCR NOT DETECTED Nasal Parainfluen 3 PCR NOT DETECTED Nasal Parainfluen 4 PCR NOT DETECTED Nasal RSV (PCR) NOT DETECTED Nasal B.pertussis DNA PCR NOT DETECTED Nasal C.pneumoniae (PCR) NOT DETECTED Ammon Human Metapneumo PCR NOT DETECTED Nasal M.pneumoniae (PCR) NOT DETECTED Nasal SARS-CoV-2 (PCR) NOT DETECTED Salicylates Urine Opiates Screen NEGATIVE Ur Oxycodone Screen NEGATIVE Urine Methadone Screen NEGATIVE Ur Propoxyphene Screen NEGATIVE Acetaminophen Ur Barbiturates Screen NEGATIVE Ur Tricyclics Screen NEGATIVE Ur Phencyclidine Scrn NEGATIVE Ur Amphetamine Screen NEGATIVE U Methamphetamines Scrn NEGATIVE U Benzodiazepines Scrn POSITIVE H Urine Cocaine Screen NEGATIVE U Cannabinoids Screen NEGATIVE Ethyl Alcohol PD MEDICAL DECISION MAKING - ED course Complexity details: reviewed results, re-evaluated patient, considered differential, d/w patient, d/w family ED course: 80-year-old female presents to the emergency department for evaluation of worsening anxiety and depression since the pandemic began. This appears at this time to be a multifactorial situation. She has trialed numerous meds that either cause worsening anxiety, agitation or nausea and has not stayed on them for very long. She also is worried that she is cognitively declining as well as experiencing significant loneliness. She has been seen by our perinatal social worker and I have medically cleared her to be seen by telepsych. After about 90 minutes in the emergency department and reevaluation of the patient with her daughter they both declined that psychiatric hospitalization. They are very interested in finding medications to help manage the symptoms. 1830; Patient and her daughter have had a an extensively long wait here in the emergency department with more than 6 hours waiting to be seen by telepsych. Unfortunately the patient and her daughter are no longer willing to wait to speak with telepsych. The daughter reports that they will speak with her psychiatrist tomorrow to talk about new medications, they are also going to see a geriatric provider in her primary care office as well as seek out holistic solutions to deal with depression. The patient is not a risk to herself at this time. She is competent to make the decision to leave the emergency department. Departure - Departure Disposition: 01 Home, Self Care Clinical Impression: Depression Qualifiers: Depression Type: other depression Qualified Code(s): F32.89 - Other specified depressive episodes Condition: Stable Record reviewed to determine appropriate education?: Yes Instructions: ED Depression Comments: I do want you to be feeling better soon. I wish that we had been able to have you speak with the psychiatrist via the computer today. However I understand your desire to leave at this time. Please continue to speak with Dr. Mendoza to discuss other medications that may be tried to manage her depression. I think in the long-term choosing to live with your sister will also help as loneliness is likely contributing to your symptoms. In addition speaking with a geriatric provider will likely be helpful. If at any point you feel unsafe or have thoughts of self-harm please call 911 or return to the emergency department
[2020-07-24 12:20] LABS: ACETAMINOPHEN < 10 ug/mL (10-30); ALBUMIN 3.6 g/dL (3.2-5.5); ALKALINE PHOSPHATASE 53 IU/L (42-121); ALT ALANINE AMINOTRANSFERASE 16 IU/L (10-60); AST ASPARTATE AMINOTRANSFERASE 21 IU/L (10-42); BILIRUBIN,TOTAL 0.5 mg/dL (0.2-1.0); BUN - BLOOD UREA NITROGEN 22 mg/dL (6-20); CALCIUM 9.6 mg/dL (8.5-10.3); CARBON DIOXIDE - CO2 25 mmol/L (21-32); CHLORIDE 99 mmol/L (101-111); CREATININE 1.2 mg/dL (0.4-1.0); GLUCOSE 107 mg/dL (70-100); LIPASE 33 U/L (22-51); SALICYLATE < 6.0 mg/dL; SODIUM 137 mmol/L (135-145); TOTAL PROTEIN 7.3 g/dL (6.7-8.2)
[2020-07-24] MEDS ORDERED: LORazepam 1 MG TABLET PO STA ×2 (12:55→15:35)
[2020-07-24 12:57] LABS: MUDS CUTOFF CONCENTRATIONS CUTOFF CONC BELOW:
[2020-07-24 13:05] LABS: BILIRUBIN,URINE NEGATIVE (NEGATIVE); GLUCOSE, URINE (UA) NEGATIVE (NEGATIVE); KETONES,URINE (UA) NEGATIVE (NEGATIVE); LEUKOCYTE ESTERASE, URINE NEGATIVE (NEGATIVE); NITRITE,URINE NEGATIVE (NEGATIVE); OCCULT BLOOD,URINE NEGATIVE (NEGATIVE); PH,URINE 6.5 PH (5.0-7.5); PROTEIN,URINE NEGATIVE (NEGATIVE); UROBILINOGEN,URINE 0.2 (NORMAL) E.U./dL (NORMAL)
[2020-07-24 13:06] LABS: CLARITY,URINE CLEAR (CLEAR)
[2020-07-24 13:16] LABS: AMPHETAMINE SCREEN,URINE NEGATIVE (NEGATIVE); BENZODIAZEPINES SCREEN, URINE POSITIVE (NEGATIVE); COCAINE SCREEN URINE NEGATIVE (NEGATIVE); METHADONE SCREEN, URINE NEGATIVE (NEGATIVE); METHAMPHETAMINES SCREEN, URINE NEGATIVE (NEGATIVE); OPIATE SCREEN, URINE NEGATIVE (NEGATIVE); TRICYCLIC ANTIDEPRESSANT,URINE NEGATIVE (NEGATIVE)
[2020-07-24 13:17] LABS: OXYCODONE SCREEN, URINE NEGATIVE (NEGATIVE); PROPOXYPHENE SCREEN, URINE NEGATIVE (NEGATIVE)
[2020-07-24 13:56] LABS: C. PNEUMONIAE- RESP PCR PANEL NOT DETECTED
[2020-07-24 18:20] VITALS: BP 147/71
== END 2020-07-24 18:56 | disposition home or self-care (01) ==
LOC: ED 11:33
DX: F32.89 Other specified depressive episodes (principal); F41.9 Anxiety disorder, unspecified; R11.0 Nausea; Z20.828 Contact with and (suspected) exposure to other viral communicable diseases; I10 Essential (primary) hypertension; Z86.718 Personal history of other venous thrombosis and embolism; Z79.01 Long term (current) use of anticoagulants
CPT/HCPCS: 36415; 80053; 81003; 83690; 84443; 85025; 87631; 93005; 99283; 99284; J8499; 0202U; 80306; 80307; 80320; 80329; 81001; 87086

== ENCOUNTER 2020-07-28 08:17 | Emergency (ER) | payer MEDICARE, OTHER ==
[2020-07-28] MEDS ORDERED: PROPRANOLOL 10 MG TABLET PO SCH (09:00)
[2020-07-28 09:43] VITALS: BP 113/80
--- NOTE | 2020-07-28 17:40 | ED Physician Documentation ---
History of Present Illness - Stated complaint Stated Complaint: SHAKING - Chief complaint Chief Complaint: MHE - History obtained from History obtained from: Patient - Additonal information Additional information: 80-year-old woman with history of anxiety presents with persistent tremors that she has been into the ED to address multiple times in the past month. She has no other complaints at this time but says that she has intermittent tremors that she associates with stress. Does have a primary doctor that is coordinating neurology follow-up as well as outpatient geriatric psychiatric services. Pt AAOX3 without fnd. Review of Systems Ten Systems: 10 systems reviewed and negative Constitutional: denies: Fever, Chills, Myalgias Neurologic: denies: Focal weakness, Numbness, Difficulty speaking Psychiatric: reports: Depressed, Anxiety PD PAST MEDICAL HISTORY - Past Medical History Past Medical History: Yes Cardiovascular: Hypertension, High cholesterol Respiratory: None Endocrine/Autoimmune: None GI: None : None HEENT: None, Chronic vision loss Psych: None, Claustrophobia Musculoskeletal: None Derm: None - Past Surgical History Past Surgical History: Yes General: Colonoscopy - Present Medications Home Medications: Ambulatory Orders Medication Instructions Recorded Confirmed Hyalur AC/Chond Sul/Colg II/Aa 2 tab PO DAILY 07/18/14 07/22/20 [Hyaluronic Acid 40 mg Capsule] Simvastatin 10 mg PO DAILY 07/18/14 07/22/20 Furosemide 10 mg PO DAILY 10/22/19 07/22/20 Losartan Potassium 100 mg PO DAILY 10/22/19 07/22/20 Metoprolol Succinate [Toprol Xl] 50 mg PO DAILY 10/22/19 07/22/20 Rivaroxaban [Xarelto] 20 mg PO DAILY 10/22/19 07/22/20 Ubidecarenone [Co Q-10] 10 mg PO DAILY 10/22/19 07/22/20 LORazepam [Ativan] 0.5 mg PO BID 02/13/20 07/22/20 amLODIPine [Norvasc] 5 mg PO DAILY 02/13/20 07/22/20 Calcium Carbonate [Calcium] 1 tab PO DAILY 07/08/20 07/22/20 [place]-3/Dha/Epa/Fish Oil [Fish Oil 1 cap PO TID 07/08/20 07/22/20 1,000 mg Softgel] Lorazepam [Ativan] 2 mg PO Q4H PRN #20 tablet 07/22/20 Propranolol [Inderal] 10 mg PO BID PRN 15 Days #30 tablet 07/28/20 - Allergies Allergies/Adverse Reactions: Allergies Allergy/AdvReac Type Severity Reaction Status Date / Time buspirone Allergy Unknown Verified 07/28/20 08:34 escitalopram Allergy Unknown Verified 07/28/20 08:34 pravastatin [From Pravachol] Allergy Unknown Verified 07/28/20 08:34 sertraline Allergy Unknown Verified 07/28/20 08:34 - Social History Does the pt smoke?: No Smoking Status: Never smoker Does the pt drink ETOH?: No Does the pt have substance abuse?: No - Immunizations Immunizations are current?: Yes - POLST Patient has POLST: No PD ED PE NORMAL - Vitals Vital signs reviewed: Yes - General General: Alert and oriented X 3 - HEENT HEENT: Atraumatic - Neck Neck: Supple, no meningeal sign - Cardiac Cardiac: RRR - Respiratory Respiratory: No respiratory distress - Abdomen Abdomen: Non tender, Non distended - Female Female : Deferred - Rectal Rectal: Deferred - Back Back: No spinal TTP - Derm Derm: Normal color - Extremities Extremities: No deformity - Neuro Neuro: Alert and oriented X 3, strategic business development 2-12 intact, No motor deficit, No sensory deficit, Normal speech - Psych Psych: Normal mood, Normal affect Results - Vitals Vitals: Vital Signs - 24 hr 07/28/20 07/28/20 08:30 09:42 Temperature 36.5 C Heart Rate 88 83 Respiratory 16 20 Rate Blood Pressure 115/59 L 113/80 O2 Saturation 99 96 Oxygen O2 Source Room air PD MEDICAL DECISION MAKING - ED course Complexity details: reviewed results, re-evaluated patient, d/w patient ED course: 80-year-old woman presents with resting tremor. Propanolol 10 mg dosage orally attempted with resolution of tremors. Prescription for 15 days sent with patient. Social work saw the patient and is coordinating outpatient follow-up with her primary doctor. Patient educated about red flags and warning signs to return to the ED. Departure - Departure Disposition: 01 Home, Self Care Clinical Impression: Tremors of nervous system, Depression, Anxiety Condition: Good Instructions: ED Anxiety Reaction Ch Prescriptions: Propranolol [Inderal] 10 mg PO BID PRN 15 Days #30 tablet PRN Reason: Anxiety Comments: You have been seen in the emergency department for tremors. It is important to follow-up with your primary doctor for further recommendations. You may benefit from seeing a neurologist. Discharge Date/Time: 07/28/20 10:27
== END 2020-07-28 10:27 | disposition home or self-care (01) ==
LOC: ED 08:17
DX: R25.1 Tremor, unspecified (principal); F32.9 Major depressive disorder, single episode, unspecified; F41.9 Anxiety disorder, unspecified; I10 Essential (primary) hypertension; Z79.01 Long term (current) use of anticoagulants
CPT/HCPCS: 99282; 99283; A9270

== ENCOUNTER 2020-08-02 15:58 | Emergency (ER) | payer MEDICARE, OTHER ==
[2020-08-02 16:07] VITALS: BP 153/48
--- NOTE | 2020-08-02 17:01 | ED Physician Documentation ---
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 She has had it about 4 times over the last 6 months. Sometimes its in the right eye, sometimes in the left. Today she had a 1 minute episode of a typically described amaurosis fugax on the left now completely gone. Looks like she has been fairly completely worked up for this, within the month she has had carotid Dopplers and an echocardiogram. The carotid Dopplers showed left the left less than 50% stenosis on either side. The echocardiogram showed mild LVH and mild to moderate aortic stenosis. Of note she is on Xarelto for history of DVT. Review of Systems Constitutional: reports: Reviewed and negative Ears: reports: Reviewed and negative Nose: reports: Reviewed and negative PD PAST MEDICAL HISTORY - Past Medical History Cardiovascular: Hypertension, High cholesterol Respiratory: None Endocrine/Autoimmune: None GI: None : None HEENT: None, Chronic vision loss Psych: None, Claustrophobia Musculoskeletal: None Derm: None - Past Surgical History Past Surgical History: Yes General: Colonoscopy - Present Medications Home Medications: Ambulatory Orders Medication Instructions Recorded Confirmed Hyalur AC/Chond Sul/Colg II/Aa 2 tab PO DAILY 07/18/14 07/22/20 [Hyaluronic Acid 40 mg Capsule] Simvastatin 10 mg PO DAILY 07/18/14 07/22/20 Furosemide 10 mg PO DAILY 10/22/19 07/22/20 Losartan Potassium 100 mg PO DAILY 10/22/19 07/22/20 Metoprolol Succinate [Toprol Xl] 50 mg PO DAILY 10/22/19 07/22/20 Rivaroxaban [Xarelto] 20 mg PO DAILY 10/22/19 07/22/20 Ubidecarenone [Co Q-10] 10 mg PO DAILY 10/22/19 07/22/20 LORazepam [Ativan] 0.5 mg PO BID 02/13/20 07/22/20 amLODIPine [Norvasc] 5 mg PO DAILY 02/13/20 07/22/20 Calcium Carbonate [Calcium] 1 tab PO DAILY 07/08/20 07/22/20 [place]-3/Dha/Epa/Fish Oil [Fish Oil 1 cap PO TID 07/08/20 07/22/20 1,000 mg Softgel] Lorazepam [Ativan] 2 mg PO Q4H PRN #20 tablet 07/22/20 Propranolol [Inderal] 10 mg PO BID PRN 15 Days #30 tablet 07/28/20 - Allergies Allergies/Adverse Reactions: Allergies Allergy/AdvReac Type Severity Reaction Status Date / Time buspirone Allergy Unknown Verified 07/28/20 08:34 escitalopram Allergy Unknown Verified 07/28/20 08:34 pravastatin [From Pravachol] Allergy Unknown Verified 07/28/20 08:34 sertraline Allergy Unknown Verified 07/28/20 08:34 - Social History Does the pt smoke?: No Smoking Status: Never smoker Does the pt drink ETOH?: No Does the pt have substance abuse?: No - Immunizations Immunizations are current?: Yes - POLST Patient has POLST: No PD ED PE NORMAL - Vitals Vital signs reviewed: Yes - General General: Alert and oriented X 3, No acute distress - HEENT HEENT: PERRL, EOMI - Neck Neck: Supple, no meningeal sign, No bony TTP - Neuro Neuro: Alert and oriented X 3, door maker 2-12 intact, No motor deficit, No sensory deficit, Normal speech Results - Vitals Vitals: Vital Signs - 24 hr 08/02/20 16:02 Temperature 36.5 C Heart Rate 65 Respiratory 16 Rate Blood Pressure 153/48 H O2 Saturation 99 Oxygen O2 Source Room air PD MEDICAL DECISION MAKING - ED course ED course: 80-year-old woman with completely resolved amaurosis fugax. Her previous work- ups were reviewed. I offered to do to CT angiography today discussing that it may find something that was not identified on the previous studies. She understands there is a small risk of missed lesion without doing the studies but declined. Otherwise it seems like she is maximally treated between the [facility] and her other medical management. Departure - Departure Disposition: 01 Home, Self Care Clinical Impression: Amaurosis fugax of left eye Condition: Good Record reviewed to determine appropriate education?: Yes Instructions: ED Transient Ischemic Attack Comments: Return if it happens again, follow-up with your solar energy advisor otherwise.
== END 2020-08-02 17:02 | disposition home or self-care (01) ==
LOC: ED 15:58
DX: G45.3 Amaurosis fugax (principal); I10 Essential (primary) hypertension
CPT/HCPCS: 99281; 99283

== ENCOUNTER 2020-08-08 10:02 | Outpatient (CLI) | payer MEDICARE, OTHER ==
--- NOTE | 2020-08-08 10:23 | XRAY Report ---
PROCEDURE: Wrist 2 View LT INDICATIONS: LEFT WRIST PAIN TECHNIQUE: 2 views of the wrist were acquired. COMPARISON: None FINDINGS: Bones: No fractures or dislocations. Mild to moderate wrist joint osteoarthritic changes are seen mo re prominent at first CMC joint and scaphotrapezial joint. No suspicious bony lesions. Scaphoid view: Scaphoid is grossly intact. Soft tissues: No suspicious soft tissue calcifications. IMPRESSION: Wrist joint osteoarthritis. No gross acute wrist fracture or dislocation. Reviewed by: Kumar Rashid MD on 08/08/2020 10:22 AM [facility] Approved by: Kumar Rashid MD on 08/08/2020 10:22 AM PST Station ID: [id number]
== END 2020-08-08 23:59 | disposition home or self-care (01) ==
LOC: DI.N 10:02
PROVIDERS: ATTEND Family Medicine
DX: M19.032 Primary osteoarthritis, left wrist (principal)

== ENCOUNTER 2020-08-13 08:02 | Outpatient (CLI) | payer MEDICARE, OTHER ==
[2020-08-13 13:15] LABS: BASOPHILS % (AUTO) 0.6 %; EOSINOPHILS # (AUTO) 0.2 10^3/uL (0.0-0.7); EOSINOPHILS % (AUTO) 2.4 %; HGB - HEMOGLOBIN 10.5 g/dL (12.0-16.0); LYMPHOCYTES # (AUTO) 1.8 10^3/uL (1.5-3.5); LYMPHOCYTES % (AUTO) 27.1 %; MEAN CORPUSCULAR HEMOGLOBIN 29.9 pg (27.0-31.0); MEAN CORPUSCULAR HGB CONC 30.4 g/dL (32.0-36.0); MEAN CORPUSCULAR VOLUME 98.3 fL (81.0-99.0); MONOCYTES # (AUTO) 0.6 10^3/uL (0.0-1.0); MONOCYTES % (AUTO) 9.2 %; NEUTROPHILS % (AUTO) 60.4 %; PLT - PLATELET COUNT 205 10^3/uL (130-450); RED BLOOD COUNT 3.51 10^6/uL (4.20-5.40); RED CELL DISTRIBUTION WIDTH 13.1 % (12.0-15.0); WHITE BLOOD COUNT 6.5 x10^3/uL (4.8-10.8)
[2020-08-13 13:43] LABS: ALBUMIN 3.5 g/dL (3.2-5.5); ALKALINE PHOSPHATASE 54 IU/L (42-121); ALT ALANINE AMINOTRANSFERASE 12 IU/L (10-60); AST ASPARTATE AMINOTRANSFERASE 21 IU/L (10-42); BILIRUBIN,TOTAL 0.6 mg/dL (0.2-1.0); BUN - BLOOD UREA NITROGEN 24 mg/dL (6-20); CALCIUM 9.1 mg/dL (8.5-10.3); CARBON DIOXIDE - CO2 25 mmol/L (21-32); CHLORIDE 107 mmol/L (101-111); CHOL/HDL RATIO 4.1 (<4.4); CHOLESTEROL 209 mg/dL; CREATININE 1.3 mg/dL (0.4-1.0); GLUCOSE 93 mg/dL (70-100); HDL CHOLESTEROL 51 mg/dL; LDL CHOLESTEROL,CALCULATED 138 mg/dL; LDL/HDL RATIO 2.7 (<4.4); SODIUM 138 mmol/L (135-145); TOTAL PROTEIN 6.9 g/dL (6.7-8.2); VLDL CHOLESTEROL 20 mg/dL
== END 2020-08-13 08:03 | disposition home or self-care (01) ==
LOC: LAB.N 08:02
PROVIDERS: ATTEND Physician Assistant Medical
DX: E78.5 Hyperlipidemia, unspecified (principal); I10 Essential (primary) hypertension
CPT/HCPCS: 36415; 80053; 80061; 83721; 85025

== ENCOUNTER 2020-08-26 13:41 | Outpatient (CLI) | payer MEDICARE, OTHER ==
[2020-08-26 18:36] LABS: BASOPHILS # (AUTO) 0.1 10^3/uL (0.0-0.1); BASOPHILS % (AUTO) 0.7 %; EOSINOPHILS # (AUTO) 0.2 10^3/uL (0.0-0.7); EOSINOPHILS % (AUTO) 3.1 %; HGB - HEMOGLOBIN 11.2 g/dL (12.0-16.0); LYMPHOCYTES # (AUTO) 2.1 10^3/uL (1.5-3.5); LYMPHOCYTES % (AUTO) 27.6 %; MEAN CORPUSCULAR HEMOGLOBIN 30.2 pg (27.0-31.0); MEAN CORPUSCULAR HGB CONC 31.2 g/dL (32.0-36.0); MEAN CORPUSCULAR VOLUME 96.8 fL (81.0-99.0); MEAN PLATELET VOLUME 10.5 fL (7.9-10.8); MONOCYTES # (AUTO) 0.7 10^3/uL (0.0-1.0); MONOCYTES % (AUTO) 9.9 %; NEUTROPHILS # (AUTO) 4.4 10^3/uL (1.5-6.6); NEUTROPHILS % (AUTO) 58.4 %; PLT - PLATELET COUNT 227 10^3/uL (130-450); RED BLOOD COUNT 3.71 10^6/uL (4.20-5.40); RED CELL DISTRIBUTION WIDTH 13.2 % (12.0-15.0); WHITE BLOOD COUNT 7.5 x10^3/uL (4.8-10.8)
== END 2020-08-26 13:42 | disposition home or self-care (01) ==
LOC: LAB.N 13:41
PROVIDERS: ATTEND Internal Medicine
DX: H53.129 Transient visual loss, unspecified eye (principal)
CPT/HCPCS: 36415; 85025; 85651; 86140

== ENCOUNTER 2020-08-28 08:00 | Outpatient (CLI) | payer MEDICARE, OTHER | END 2020-08-28 23:59 | disposition home or self-care (01) | LOC: LAB.N 08:00 | PROVIDERS: ATTEND Physician Assistant Medical | DX: N30.00 Acute cystitis without hematuria (principal) | CPT/HCPCS: 87077; 87086; 87181 ==

== ENCOUNTER 2020-08-28 10:28 | Outpatient (CLI) | payer MEDICARE, OTHER ==
--- NOTE | 2020-08-29 05:38 | Mammography Report ---
BILATERAL DIGITAL SCREENING MAMMOGRAM 3D/2D: 08/28/2020 CLINICAL: Routine screening. Comparison is made to exams dated: 03/09/2019 mammogram, 01/27/2018 mammogram, 12/27/2016 mammogram, mammogram, 10/23/2014 mammogram, and 10/19/2013 mammogram - [facility]. The t issue of both breasts is predominantly fatty. No significant masses, calcifications, or other findings are seen in either breast. There has been no significant interval change. IMPRESSION: NEGATIVE There is no mammographic evidence of malignancy. A 1 year screening mammogram is recommended. This exam was interpreted at Station ID: [id number]. NOTE: For mammograms, a report in lay terms will be sent to the patient. Approximately 15% of breast malignancies will not be visualized mammographically. In the management of a palpable breast mass, a negative mammogram must not discourage biopsy of a clinically suspicious lesion. Electronically Signed By: Deon Carson acr/penrad:08/28/2020 11:29:15 ACR BI-RADS Category 1: Negative 3341F PARENCHYMAL PATTERN: (F) - The breast(s) demonstrate(s) diffuse fatty replacement. BI-RADS CATEGORY: (1) - 1 RECOMMENDATION: (ANNUAL) - Recommend routine annual screening mammography. [id number] 1 year screening LATERALITY: (B)
== END 2020-08-28 10:29 | disposition home or self-care (01) ==
LOC: DI.N 10:28
DX: Z12.31 Encounter for screening mammogram for malignant neoplasm of breast (principal)
CPT/HCPCS: 77067

== ENCOUNTER 2021-03-30 10:28 | Outpatient (CLI) | payer MEDICARE, OTHER ==
[2021-03-30 12:32] LABS: BASOPHILS % (AUTO) 0.6 %; EOSINOPHILS # (AUTO) 0.1 10^3/uL (0.0-0.7); EOSINOPHILS % (AUTO) 2.2 %; HCT - HEMATOCRIT 34.3 % (37.0-47.0); HGB - HEMOGLOBIN 10.8 g/dL (12.0-16.0); LYMPHOCYTES # (AUTO) 1.8 10^3/uL (1.5-3.5); LYMPHOCYTES % (AUTO) 28.1 %; MEAN CORPUSCULAR HEMOGLOBIN 30.2 pg (27.0-31.0); MEAN CORPUSCULAR HGB CONC 31.5 g/dL (32.0-36.0); MEAN CORPUSCULAR VOLUME 95.8 fL (81.0-99.0); MEAN PLATELET VOLUME 9.6 fL (7.9-10.8); MONOCYTES # (AUTO) 0.5 10^3/uL (0.0-1.0); MONOCYTES % (AUTO) 7.4 %; NEUTROPHILS # (AUTO) 3.9 10^3/uL (1.5-6.6); NEUTROPHILS % (AUTO) 61.4 %; PLT - PLATELET COUNT 240 10^3/uL (130-450); RED BLOOD COUNT 3.58 10^6/uL (4.20-5.40); RED CELL DISTRIBUTION WIDTH 12.3 % (12.0-15.0); WHITE BLOOD COUNT 6.4 x10^3/uL (4.8-10.8)
[2021-03-30 12:57] LABS: ALBUMIN 3.8 g/dL (3.2-5.5); ALKALINE PHOSPHATASE 46 IU/L (42-121); ALT ALANINE AMINOTRANSFERASE 16 IU/L (10-60); AST ASPARTATE AMINOTRANSFERASE 23 IU/L (10-42); BILIRUBIN,TOTAL 0.6 mg/dL (0.2-1.0); BUN - BLOOD UREA NITROGEN 27 mg/dL (6-20); CALCIUM 9.3 mg/dL (8.5-10.3); CARBON DIOXIDE - CO2 25 mmol/L (21-32); CHLORIDE 105 mmol/L (101-111); CHOLESTEROL 188 mg/dL; CREATININE 1.5 mg/dL (0.4-1.0); GFR - MDRD 33 (>89); GLUCOSE 109 mg/dL (70-100); HDL CHOLESTEROL 63 mg/dL; LDL CHOLESTEROL,CALCULATED 104 mg/dL; LDL/HDL RATIO 1.7 (<4.4); POTASSIUM 4.7 mmol/L (3.5-5.0); SODIUM 138 mmol/L (135-145); TOTAL PROTEIN 7.6 g/dL (6.7-8.2); TRIGLYCERIDES 106 mg/dL; VLDL CHOLESTEROL 21 mg/dL
== END 2021-03-30 10:29 | disposition home or self-care (01) ==
LOC: LAB.N 10:28
PROVIDERS: ATTEND Physician Assistant Medical
DX: E78.5 Hyperlipidemia, unspecified (principal); D64.9 Anemia, unspecified
CPT/HCPCS: 36415; 80053; 80061; 83721; 85025

== ENCOUNTER 2021-06-26 10:47 | Outpatient (CLI) | payer MEDICARE, OTHER ==
[2021-06-26 17:47] LABS: BASOPHILS % (AUTO) 0.6 %; EOSINOPHILS # (AUTO) 0.2 10^3/uL (0.0-0.7); EOSINOPHILS % (AUTO) 2.6 %; HCT - HEMATOCRIT 33.9 % (37.0-47.0); HGB - HEMOGLOBIN 10.4 g/dL (12.0-16.0); LYMPHOCYTES # (AUTO) 1.9 10^3/uL (1.5-3.5); LYMPHOCYTES % (AUTO) 29.3 %; MEAN CORPUSCULAR HEMOGLOBIN 30.1 pg (27.0-31.0); MEAN CORPUSCULAR HGB CONC 30.7 g/dL (32.0-36.0); MEAN PLATELET VOLUME 10.7 fL (7.9-10.8); MONOCYTES # (AUTO) 0.6 10^3/uL (0.0-1.0); MONOCYTES % (AUTO) 9.5 %; NEUTROPHILS # (AUTO) 3.7 10^3/uL (1.5-6.6); NEUTROPHILS % (AUTO) 57.7 %; PLT - PLATELET COUNT 207 10^3/uL (130-450); RED BLOOD COUNT 3.46 10^6/uL (4.20-5.40); RED CELL DISTRIBUTION WIDTH 13.6 % (12.0-15.0); WHITE BLOOD COUNT 6.4 x10^3/uL (4.8-10.8)
[2021-06-26 18:08] LABS: % IRON SATURATION 17 % (20-50); IRON 57 ug/dL (28-170); TOTAL IRON BINDING CAPACITY 339 ug/dL (250-450); TRANSFERRIN 242 mg/dL (192-382)
[2021-06-26 18:28] LABS: FERRITIN 12.8 ng/mL (11.0-306.8)
== END 2021-06-26 23:59 | disposition home or self-care (01) ==
LOC: LAB.WCP 10:47
PROVIDERS: ATTEND Physician Assistant Medical
DX: D64.9 Anemia, unspecified (principal)
CPT/HCPCS: 36415; 82607; 82728; 82746; 83540; 84466; 85025

== ENCOUNTER 2021-11-06 08:00 | Outpatient (CLI) | payer MEDICARE, OTHER | END 2021-11-06 23:59 | disposition home or self-care (01) | LOC: LAB.N 08:00 | PROVIDERS: ATTEND Physician Assistant | DX: N30.00 Acute cystitis without hematuria (principal) | CPT/HCPCS: 87086; 87181 ==

== ENCOUNTER 2022-03-25 10:19 | Outpatient (CLI) | payer MEDICARE, OTHER ==
[2022-03-25 11:54] LABS: BASOPHILS # (AUTO) 0.1 10^3/uL (0.0-0.1); BASOPHILS % (AUTO) 0.6 %; EOSINOPHILS # (AUTO) 0.2 10^3/uL (0.0-0.7); EOSINOPHILS % (AUTO) 2.2 %; HCT - HEMATOCRIT 28.2 % (37.0-47.0); HGB - HEMOGLOBIN 8.7 g/dL (12.0-16.0); LYMPHOCYTES # (AUTO) 1.4 10^3/uL (1.5-3.5); LYMPHOCYTES % (AUTO) 16.3 %; MEAN CORPUSCULAR HEMOGLOBIN 29.4 pg (27.0-31.0); MEAN CORPUSCULAR HGB CONC 30.9 g/dL (32.0-36.0); MEAN CORPUSCULAR VOLUME 95.3 fL (81.0-99.0); MONOCYTES # (AUTO) 0.6 10^3/uL (0.0-1.0); MONOCYTES % (AUTO) 7.5 %; NEUTROPHILS # (AUTO) 6.1 10^3/uL (1.5-6.6); NEUTROPHILS % (AUTO) 73.2 %; PLT - PLATELET COUNT 213 10^3/uL (130-450); RED BLOOD COUNT 2.96 10^6/uL (4.20-5.40); RED CELL DISTRIBUTION WIDTH 17.9 % (12.0-15.0); WHITE BLOOD COUNT 8.4 x10^3/uL (4.8-10.8)
[2022-03-25 12:22] LABS: CREATININE 1.5 mg/dL (0.4-1.0); POTASSIUM 4.5 mmol/L (3.5-5.0)
== END 2022-03-25 10:20 | disposition home or self-care (01) ==
LOC: LAB.N 10:19
PROVIDERS: ATTEND Physician Assistant Medical
DX: K92.2 Gastrointestinal hemorrhage, unspecified (principal)
CPT/HCPCS: 36415; 80048; 82728; 83540; 84466; 85025

== ENCOUNTER 2022-04-08 07:37 | Outpatient (CLI) | payer MEDICARE, OTHER ==
--- NOTE | 2022-04-09 08:53 | CT Report ---
PROCEDURE: Abdomen/Pelvis WO INDICATIONS: LOW BACK PAIN TECHNIQUE: Noncontrast 5 mm thick sections acquired from the diaphragms to the symphysis. 5 mm coronal and sagi ttal reformats were then performed. For radiation dose reduction, the following was used: automated exposure control, adjustment of mA and/or kV according to patient size. COMPARISON: CT abdomen and pelvis with, 11/28/2019. FINDINGS: Image quality: Excellent. ABDOMEN: Lung bases: Lung bases are clear. Heart size is mildly increased. Solid organs: Liver and spleen are normal in size. Gallbladder is normal. Pancreas is normal in co ntours. No adrenal nodules. Kidneys are normal in size, without hydronephrosis or nephrolithiasis. There is a 2.5 cm cyst in left kidney. No hydronephrosis. Peritoneum and bowel: Unenhanced bowel loops demonstrate normal wall thickness and caliber. Diverti culosis without diverticulitis. No free fluid or air. Nodes and vessels: No retroperitoneal or mesenteric adenopathy by size criteria. Aorta and inferior vena cava are normal in caliber. Moderate to severe atherosclerotic calcifications. There is an IVC filter. Miscellaneous: No ventral hernias. PELVIS: Genitourinary: Bladder wall thickness is normal. Uterus is small consistent with age appropriate at [facility]. A small calcified fibroid is suspected in the right posterior uterine wall. Ovaries are not we ll seen. No pathological free fluid in the cul-de-sac or adnexa. Miscellaneous: No inguinal hernias or adenopathy. Bones: No suspicious bony lesions. Mild compression deformity of superior endplate of L3, indetermin ate in chronicity but new since 11/28/2019. IMPRESSION: 1. Mild compression fracture of L3 of uncertain chronicity but new since 11/27/2009 20. If clinically indicated, MRI would be helpful. 2. 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 This can be evaluated by MRI as well. 3. Diverticulosis without diverticulitis. 4. Orscicuc-by-npzdax atherosclerosis. Reviewed by: Ansley Roque MD on 04/09/2022 8:52 AM PDT Approved by: Ansley Roque MD on 04/09/2022 8:52 AM PDT Station ID: [id number]
== END 2022-04-08 07:38 | disposition home or self-care (01) ==
LOC: DI 07:37
PROVIDERS: ATTEND Nurse Practitioner
DX: M48.56XA Collapsed vertebra, not elsewhere classified, lumbar region, initial encounter for fracture (principal); G96.191 Perineural cyst; K57.90 Diverticulosis of intestine, part unspecified, without perforation or abscess without bleeding; I70.90 Unspecified atherosclerosis

== ENCOUNTER 2022-05-14 11:13 | Outpatient (CLI) | payer MEDICARE, OTHER | END 2022-05-14 11:14 | disposition home or self-care (01) | LOC: LAB 11:13 | PROVIDERS: ATTEND Internal Medicine Nephrology | DX: N05.9 Unspecified nephritic syndrome with unspecified morphologic changes (principal); E83.30 Disorder of phosphorus metabolism, unspecified; N25.81 Secondary hyperparathyroidism of renal origin | CPT/HCPCS: 36415; 80048; 83970; 84100 ==

== ENCOUNTER 2022-06-10 11:30 | Outpatient (CLI) | payer MEDICARE, OTHER | END 2022-06-10 11:31 | disposition home or self-care (01) | LOC: LAB.N 11:30 | PROVIDERS: ATTEND Physician Assistant Medical | DX: Z53.9 Procedure and treatment not carried out, unspecified reason (principal) ==

== ENCOUNTER 2022-07-13 08:00 | Outpatient (CLI) | payer MEDICARE, OTHER ==
[2022-07-13 18:28] LABS: BILIRUBIN,URINE NEGATIVE (NEGATIVE); GLUCOSE, URINE (UA) NEGATIVE (NEGATIVE); KETONES,URINE (UA) NEGATIVE (NEGATIVE); LEUKOCYTE ESTERASE, URINE LARGE (NEGATIVE); NITRITE,URINE NEGATIVE (NEGATIVE); OCCULT BLOOD,URINE LARGE (NEGATIVE); PROTEIN,URINE 100 mg/dL (NEGATIVE); UROBILINOGEN,URINE 0.2 (NORMAL) E.U./dL (NORMAL)
[2022-07-13 18:29] LABS: CLARITY,URINE CLOUDY (CLEAR)
[2022-07-13 18:39] LABS: SQUAMOUS EPITHELIAL CELL,UR RARE Squamous (<= Few); WBC,URINE >25 /HPF (0-5)
[2022-07-13 18:40] LABS: BACTERIA,URINE Few /HPF (None Seen)
== END 2022-07-13 23:59 | disposition home or self-care (01) ==
LOC: LAB.WCP 08:00
PROVIDERS: ATTEND Physician Assistant
DX: R35.0 Frequency of micturition (principal)
CPT/HCPCS: 81001; 87086; 87181

== ENCOUNTER 2022-08-30 09:49 | Outpatient (CLI) | payer MEDICARE, OTHER ==
[2022-08-30 11:59] LABS: BASOPHILS # (AUTO) 0.1 10^3/uL (0.0-0.1); EOSINOPHILS # (AUTO) 0.4 10^3/uL (0.0-0.7); HCT - HEMATOCRIT 35.2 % (37.0-47.0); HGB - HEMOGLOBIN 10.7 g/dL (12.0-16.0); LYMPHOCYTES % (AUTO) 33.2 %; MEAN CORPUSCULAR HEMOGLOBIN 29.6 pg (27.0-31.0); MEAN CORPUSCULAR HGB CONC 30.4 g/dL (32.0-36.0); MEAN CORPUSCULAR VOLUME 97.2 fL (81.0-99.0); MEAN PLATELET VOLUME 9.6 fL (7.9-10.8); MONOCYTES # (AUTO) 0.5 10^3/uL (0.0-1.0); MONOCYTES % (AUTO) 8.8 %; NEUTROPHILS % (AUTO) 50.8 %; PLT - PLATELET COUNT 215 10^3/uL (130-450); RED BLOOD COUNT 3.62 10^6/uL (4.20-5.40); RED CELL DISTRIBUTION WIDTH 12.9 % (12.0-15.0)
[2022-08-30 12:16] LABS: ALBUMIN 3.7 g/dL (3.2-5.5); ALKALINE PHOSPHATASE 59 IU/L (42-121); ALT ALANINE AMINOTRANSFERASE < 10 IU/L (10-60); AST ASPARTATE AMINOTRANSFERASE 17 IU/L (10-42); BILIRUBIN,TOTAL 0.7 mg/dL (0.2-1.0); BUN - BLOOD UREA NITROGEN 19 mg/dL (6-20); CALCIUM 9.4 mg/dL (8.5-10.3); CARBON DIOXIDE - CO2 28 mmol/L (21-32); CHLORIDE 106 mmol/L (101-111); CHOL/HDL RATIO 5.1 (<4.4); CHOLESTEROL 245 mg/dL; CREATININE 1.4 mg/dL (0.4-1.0); GFR - MDRD 36 (>89); GLUCOSE 94 mg/dL (70-100); HDL CHOLESTEROL 48 mg/dL; LDL CHOLESTEROL,CALCULATED 165 mg/dL; LDL/HDL RATIO 3.4 (<4.4); POTASSIUM 4.8 mmol/L (3.5-5.0); SODIUM 140 mmol/L (135-145); TOTAL PROTEIN 7.4 g/dL (6.7-8.2); TRIGLYCERIDES 161 mg/dL; VLDL CHOLESTEROL 32 mg/dL
== END 2022-08-30 09:50 | disposition home or self-care (01) ==
LOC: LAB.N 09:49
PROVIDERS: ATTEND Physician Assistant Medical
DX: E78.5 Hyperlipidemia, unspecified (principal); K92.2 Gastrointestinal hemorrhage, unspecified
CPT/HCPCS: 36415; 80053; 80061; 82728; 83721; 85025

== ENCOUNTER 2022-10-25 13:16 | Outpatient (CLI) | payer MEDICARE, OTHER ==
--- NOTE | 2022-10-26 12:23 | Mammography Report ---
BILATERAL DIGITAL SCREENING MAMMOGRAM 3D/2D: 10/25/2022 CLINICAL: Routine screening. Comparison is made to exams dated: 08/28/2020 mammogram, 03/09/2019 mammogram, 01/27/2018 mammogram, a nd 12/27/2016 mammogram - [facility]. There are scattered areas of fibroglandular density in both breasts (category b / 25%-50% glandular t issue). No significant masses, calcifications, or other findings are seen in either breast. There has been no significant interval change. IMPRESSION: NEGATIVE There is no mammographic evidence of malignancy. A 1 year screening mammogram is recommended. Based on the Tyrer Cuzick model (a risk assessment model) the patients lifetime risk is 0.9% and her 10 year risk is 0.0%. According to the ACR, ACS, and NCCN guidelines, an annual breast MRI exam justina g with mammogram is recommended if the patients lifetime risk is 20% or greater. This exam was interpreted at Station ID: [id number]. NOTE: For mammograms, a report in lay terms will be sent to the patient. Approximately 15% of breast malignancies will not be visualized mammographically. In the management of a palpable breast mass, a negative mammogram must not discourage biopsy of a clinically suspicious lesion. Electronically Signed By: Jorge Miguel M.D. [facility] [place]/penrober:10/25/2022 14:23:23 ACR BI-RADS Category 1: Negative 3341F PARENCHYMAL PATTERN: (A) - The breast(s) demonstrate(s) scattered fibroglandular densities. BI-RADS CATEGORY: (1) - 1 RECOMMENDATION: (ANNUAL) - Recommend routine annual screening mammography. [id number] 1 year screening LATERALITY: (B)
== END 2022-10-25 13:17 | disposition home or self-care (01) ==
LOC: DI.N 13:16
DX: Z12.31 Encounter for screening mammogram for malignant neoplasm of breast (principal)

== ENCOUNTER 2023-01-08 09:22 | Outpatient (CLI) | payer MEDICARE, OTHER ==
[2023-01-08 19:07] LABS: CHOLESTEROL 164 mg/dL; HDL CHOLESTEROL 54 mg/dL; LDL CHOLESTEROL,CALCULATED 85 mg/dL; LDL/HDL RATIO 1.6 (<4.4); TRIGLYCERIDES 123 mg/dL; VLDL CHOLESTEROL 25 mg/dL
== END 2023-01-08 09:23 | disposition home or self-care (01) ==
LOC: LAB.N 09:22
PROVIDERS: ATTEND Physician Assistant Medical
DX: E78.5 Hyperlipidemia, unspecified (principal)
CPT/HCPCS: 36415; 80061; 83721

== ENCOUNTER 2023-03-25 09:04 | Outpatient (CLI) | payer MEDICARE, OTHER | END 2023-03-25 09:05 | disposition home or self-care (01) | LOC: LAB.N 09:04 | PROVIDERS: ATTEND Internal Medicine Hematology & Oncology | DX: Z53.9 Procedure and treatment not carried out, unspecified reason (principal) ==

== ENCOUNTER 2023-05-24 08:00 | Outpatient (CLI) | payer MEDICARE, OTHER | END 2023-05-24 23:59 | disposition home or self-care (01) | LOC: LAB.N 08:00 | PROVIDERS: ATTEND Nurse Practitioner | DX: N39.0 Urinary tract infection, site not specified (principal) | CPT/HCPCS: 87086; 87181 ==

== ENCOUNTER 2023-06-27 08:53 | Outpatient (CLI) | payer MEDICARE, OTHER ==
[2023-06-27 12:25] LABS: BASOPHILS % (AUTO) 0.9 %; EOSINOPHILS # (AUTO) 0.1 10^3/uL (0.0-0.7); EOSINOPHILS % (AUTO) 3.2 %; HCT - HEMATOCRIT 34.6 % (37.0-47.0); LYMPHOCYTES # (AUTO) 1.1 10^3/uL (1.5-3.5); LYMPHOCYTES % (AUTO) 25.7 %; MEAN CORPUSCULAR HEMOGLOBIN 31.1 pg (27.0-31.0); MEAN CORPUSCULAR HGB CONC 31.8 g/dL (32.0-36.0); MEAN CORPUSCULAR VOLUME 97.7 fL (81.0-99.0); MEAN PLATELET VOLUME 10.3 fL (7.9-10.8); MONOCYTES # (AUTO) 0.4 10^3/uL (0.0-1.0); MONOCYTES % (AUTO) 9.7 %; NEUTROPHILS # (AUTO) 2.6 10^3/uL (1.5-6.6); NEUTROPHILS % (AUTO) 60.3 %; PLT - PLATELET COUNT 166 10^3/uL (130-450); RED BLOOD COUNT 3.54 10^6/uL (4.20-5.40); RED CELL DISTRIBUTION WIDTH 13.2 % (12.0-15.0); WHITE BLOOD COUNT 4.3 x10^3/uL (4.8-10.8)
[2023-06-27 13:34] LABS: BUN - BLOOD UREA NITROGEN 20 mg/dL (6-20); CALCIUM 9.7 mg/dL (8.5-10.3); CARBON DIOXIDE - CO2 30 mmol/L (21-32); CHLORIDE 107 mmol/L (101-111); CHOL/HDL RATIO 3.5 (<4.4); CHOLESTEROL 162 mg/dL; CREATININE 1.2 mg/dL (0.6-1.3); GFR - MDRD 43 (>89); GLUCOSE 88 mg/dL (74-104); HDL CHOLESTEROL 46 mg/dL; LDL CHOLESTEROL,CALCULATED 87 mg/dL; LDL/HDL RATIO 1.9 (<4.4); POTASSIUM 4.7 mmol/L (3.5-4.5); SODIUM 141 mmol/L (135-145); TRIGLYCERIDES 144 mg/dL (48-352); VLDL CHOLESTEROL 29 mg/dL
[2023-06-27 13:35] LABS: THYROID STIMULATING HORMONE 3.36 uIU/mL (0.34-5.60)
== END 2023-06-27 08:54 | disposition home or self-care (01) ==
LOC: LAB.N 08:53
PROVIDERS: ATTEND Internal Medicine Cardiovascular Disease
DX: I10 Essential (primary) hypertension (principal); E78.5 Hyperlipidemia, unspecified; R53.83 Other fatigue
CPT/HCPCS: 36415; 80048; 80061; 83721; 84443; 85025

== ENCOUNTER 2023-11-15 08:48 | Outpatient (CLI) | payer MEDICARE, OTHER ==
[2023-11-15 12:44] LABS: CHOLESTEROL 153 mg/dL; HDL CHOLESTEROL 51 mg/dL; LDL CHOLESTEROL,CALCULATED 78 mg/dL; LDL/HDL RATIO 1.5 (<4.4); TRIGLYCERIDES 119 mg/dL (48-352); VLDL CHOLESTEROL 24 mg/dL
== END 2023-11-15 08:49 | disposition home or self-care (01) ==
LOC: LAB.N 08:48
PROVIDERS: ATTEND Physician Assistant Medical
DX: E78.5 Hyperlipidemia, unspecified (principal)
CPT/HCPCS: 36415; 80061; 83721

== ENCOUNTER 2023-12-01 07:46 | Outpatient (CLI) | payer MEDICARE, OTHER ==
--- NOTE | 2023-12-01 09:39 | Ultrasound Report ---
PROCEDURE: Abdomen Limited INDICATIONS: ELEVATED LIVER ENZYMES TECHNIQUE: Real-time focused scanning was performed of the abdomen, with image documentation. COMPARISONS: CT abdomen pelvis 04/08/2022. FINDINGS: Liver: Liver is normal in size and mildly increased echogenicity. Gallbladder: Unremarkable. Biliary ducts: Intrahepatic bile ducts are non-dilated. Extrahepatic bile duct caliber measures 6.1 mm. Normal is 6-7 mm or less in diameter, or 10 mm or less post-cholecystectomy. Pancreas: Visualized portions of the pancreas are sonographically normal. Right kidney: Normal in size and echotexture. Right kidney measures 11.7 cm long. No hydronephrosis or nephrolithiasis. No solid masses. No complex renal cystic lesions which require follow-up. Miscellaneous: No free abdominal fluid. IMPRESSION: Liver is mildly increased in echogenicity, most consistent with hepatic steatosis. Reviewed by: Moreno Farrell MD on 12/01/2023 9:38 AM PDT Approved by: Moreno Farrell MD on 12/01/2023 9:38 AM PDT Station ID: [id number]
== END 2023-12-01 07:47 | disposition home or self-care (01) ==
LOC: DI 07:46
PROVIDERS: ATTEND Physician Assistant Medical
DX: R74.01 Elevation of levels of liver transaminase levels (principal)

== ENCOUNTER 2024-06-04 14:31 | Outpatient (CLI) | payer MEDICARE, OTHER ==
--- NOTE | 2024-06-05 09:45 | Mammography Report ---
BILATERAL DIGITAL SCREENING MAMMOGRAM: 06/04/2024 CLINICAL: Routine screening. Comparison is made to exams dated: 10/25/2022 mammogram, 08/28/2020 mammogram, 03/09/2019 mammogram, mammogram, 12/27/2016 mammogram, and 12/04/2015 mammogram - [facility]. There are scattered areas of fibroglandular density (category b / 25%-50% glandular tissue). No significant masses, calcifications, or other findings are seen in either breast. There has been no significant interval change. IMPRESSION: NEGATIVE There is no mammographic evidence of malignancy. A 1 year screening mammogram is recommended. Based on the Tyrer Cuzick model (a risk assessment model) the patient's lifetime risk is 0.5% and her 10 year risk is 0.0%. According to the ACR, ACS, and NCCN guidelines, an annual breast MRI exam justina g with mammogram is recommended if the patient's lifetime risk is 20% or greater. This exam was interpreted at Station ID: [id number]. NOTE: For mammograms, a report in lay terms will be sent to the patient. Approximately 15% of breast malignancies will not be visualized mammographically. In the management of a palpable breast mass, a negative mammogram must not discourage biopsy of a clinically suspicious lesion. Electronically Signed By: Emma Danielle M.D., Ph.D. eb/gil:06/05/2024 09:27:30 ACR BI-RADS Category 1: Negative PARENCHYMAL PATTERN: (A) - The breast(s) demonstrate(s) scattered fibroglandular densities. BI-RADS CATEGORY: (1) - 1 RECOMMENDATION: (ANNUAL) - Recommend routine annual screening mammography. [id number] 1 year screening LATERALITY: (B)
== END 2024-06-04 14:32 | disposition home or self-care (01) ==
LOC: DI.N 14:31
DX: Z12.31 Encounter for screening mammogram for malignant neoplasm of breast (principal)

== ENCOUNTER 2024-06-04 14:36 | Outpatient (CLI) | payer MEDICARE, OTHER ==
[2024-06-04 18:01] LABS: HCT - HEMATOCRIT 34.4 % (37.0-47.0); HGB - HEMOGLOBIN 10.7 g/dL (12.0-16.0)
== END 2024-06-04 14:37 | disposition home or self-care (01) ==
LOC: LAB.N 14:36
PROVIDERS: ATTEND Internal Medicine Gastroenterology
DX: Z87.19 Personal history of other diseases of the digestive system (principal)
CPT/HCPCS: 36415; 85014; 85018